=== PATIENT | female | born 1940 | race Hispanic/Latino ===

== ENCOUNTER 2019-08-21 16:52 | Emergency (ER) | payer MEDICARE ==
[~2019-08-21 16:52] MED LIST: BENZ-51 PO; LOSA50TA64 PO
[2019-08-21] MEDS ORDERED: ACETAMINOPHEN EXTRA STRENGTH 500 MG TABLET ONE (17:24)
[2019-08-21 17:48] LABS: BASOPHILS % (AUTO) 0.2 % (0.0-5.0); EOSINOPHILS % (AUTO) 0.6 % (0.0-8.0); HEMATOCRIT 40.7 % (36-48); MEAN CORPUSCULAR HGB CONC 32.4 g/dL (32.0-36.0); MEAN CORPUSCULAR VOLUME 89.5 fL (79-99); MONOCYTES % (AUTO) 1.5 % (3.0-13.0); NEUTROPHILS % (AUTO) 86.7 % (40.0-77.0); NUCLEATED RED BLOOD CELLS 0.1 % (0.0-0.19); PLATELET COUNT (AUTO) 224 K/uL (130-400); RED BLOOD CELL COUNT(AUTO) 4.54 MIL/uL (4.00-5.50); WHITE BLOOD COUNT (AUTO) 11.9 K/uL (4.8-10.8)
[2019-08-21 17:58] LABS: CREATININE 1.1 mg/dL (0.5-1.5); POTASSIUM 5.3 mmol/L (3.5-5.1)
[2019-08-21 18:02] LABS: ALBUMIN 3.5 g/dL (3.5-5.0); BILIRUBIN,TOTAL 0.5 mg/dL (0.2-1.0); TOTAL PROTEIN, SERUM 7.7 g/dL (6.0-8.3)
== END 2019-08-21 18:47 | disposition home or self-care (01) ==
LOC: EDH 16:52
DX: R19.7 Diarrhea, unspecified (principal); R53.1 Weakness; I10 Essential (primary) hypertension; M54.9 Dorsalgia, unspecified; M25.551 Pain in right hip
CPT/HCPCS: 36415; 70450; 80053; 83690; 84484; 85025; 93005

== ENCOUNTER 2021-12-23 05:21 | Emergency (ER) | payer MEDICARE ==
[~2021-12-23 05:21] MED LIST changes: -BENZ-51 PO; +BENZ-70 PO
[2021-12-23] MEDS ORDERED: LIDOCAINE PF 100MG/5ML (2%) SYRINGE 5ML ONE (06:06)
[2021-12-23] MEDS ORDERED: LIDOCAINE HCL MPF 1% 5ML VIAL ONE ×2 (06:09→06:16)
[2021-12-23 06:39] VITALS: BP 138/78
[2021-12-23] MEDS ORDERED: CLINDAMYCIN 150 MG CAP ONE (06:43)
[2021-12-23] MEDS ORDERED: CLIN-116 PO (06:47)
[2021-12-23] MEDS ORDERED: CLINDAMYCIN 150 MG CAP PO ONE (07:00)
== END 2021-12-23 07:03 | disposition home or self-care (01) ==
LOC: EDH 05:21
DX: L02.414 Cutaneous abscess of left upper limb (principal); E78.00 Pure hypercholesterolemia, unspecified; I10 Essential (primary) hypertension; Z79.899 Other long term (current) drug therapy
CPT/HCPCS: 10061; 99284; J3490 ×2; J2001

== ENCOUNTER 2022-03-16 05:37 | Emergency (ER) | payer MEDICARE ==
[~2022-03-16] VITALS: Ht 170.2 cm; Wt 78.9 kg
[~2022-03-16 05:37] MED LIST changes: +CLIN-116 PO
[2022-03-16] MEDS ORDERED: KETOROLAC 15MG/ML VIAL (15MG/ML) IV ONE (06:30)
[2022-03-16] MEDS ORDERED: GUAIFENESIN-DM 200/20 MG 10 ML PO ONE (06:30)
[2022-03-16] MEDS ORDERED: 0.9% NACL 500ML IV.SOLN 500 ML IV ONE (06:30)
[2022-03-16] MEDS ORDERED: D-ME118S47 PO (06:32)
[2022-03-16 07:13] LABS: BASOPHILS % (AUTO) 0.3 % (0.0-5.0); HEMATOCRIT 37.9 % (36-48); LYMPHOCYTES % (AUTO) 41.1 % (21.0-51.0); MEAN CORPUSCULAR HEMOGLOBIN 28.7 pg (27.0-33.0); MEAN CORPUSCULAR HGB CONC 31.9 g/dL (32.0-36.0); MEAN CORPUSCULAR VOLUME 89.8 fL (79-99); MONOCYTES % (AUTO) 12.2 % (3.0-13.0); PLATELET COUNT (AUTO) 218 K/uL (130-400); RED BLOOD CELL COUNT(AUTO) 4.22 MIL/uL (4.00-5.50); RED CELL DISTRIBUTION WIDTH 13.1 % (11.0-15.5); WHITE BLOOD COUNT (AUTO) 6.8 K/uL (4.8-10.8)
[2022-03-16 07:39] LABS: ALBUMIN 3.4 g/dL (3.5-5.0); BILIRUBIN,DIRECT 0.1 mg/dL (0.0-0.3); BILIRUBIN,TOTAL 0.3 mg/dL (0.2-1.0); POTASSIUM 3.5 mmol/L (3.5-5.1); TOTAL PROTEIN, SERUM 7.1 g/dL (6.0-8.3)
[2022-03-16] MEDS ORDERED: BENZONATATE 100 MG CAPSULE PO ONE (08:30)
[2022-03-16] MEDS ORDERED: ALBUTEROL INHALER 90MCG/INH IH ONE (08:30)
[2022-03-16] MEDS ORDERED: DEXAMETHASONE SOD PHOSPHATE 4 MG/ML 1ML VIAL IV ONE (08:30)
[2022-03-16 08:36] VITALS: BP 106/60
== END 2022-03-16 09:23 | disposition home or self-care (01) ==
LOC: EDH 05:37
DX: U07.1 COVID-19 (principal); R53.1 Weakness; Z88.6 Allergy status to analgesic agent; Z79.899 Other long term (current) drug therapy; Z90.49 Acquired absence of other specified parts of digestive tract; Z98.890 Other specified postprocedural states
CPT/HCPCS: 36415; 71045; 80053; 82248; 84484; 85025; 87635; 93005; 96374; 96375; 99285; C9803; J1100; J1885; J7040

== ENCOUNTER → 2022-06-16 | Outpatient (CLI) | payer MEDICARE ==
[~2022-06-16] MED LIST changes: +D-ME118S47 PO
[2022-06-16 10:57] LABS: ALBUMIN 3.8 g/dL (3.5-5.0); POTASSIUM 3.9 mmol/L (3.5-5.1); TOTAL PROTEIN, SERUM 7.8 g/dL (6.0-8.3)
== END | disposition home or self-care (01) ==
LOC: LAB 09:37
PROVIDERS: ATTEND Internal Medicine
DX: I10 Essential (primary) hypertension (principal); J44.9 Chronic obstructive pulmonary disease, unspecified; J84.10 Pulmonary fibrosis, unspecified; E78.2 Mixed hyperlipidemia
CPT/HCPCS: 36415; 80053

== ENCOUNTER 2023-01-15 06:02 | Emergency (ER) | payer MEDICARE ==
[~2023-01-15] VITALS: Ht 172.7 cm; Wt 82.1 kg
[~2023-01-15 06:02] MED LIST changes: +BENZ-226 PO; -BENZ-70 PO
[2023-01-15 06:16] VITALS: BP 183/88
[2023-01-15] MEDS ORDERED: MORPHINE 4 MG SYG IM ONE ×2 (07:30→08:30)
[2023-01-15] MEDS ORDERED: ONDANSETRON ODT 4MG TAB SL ONE (07:30)
[2023-01-15] MEDS ORDERED: OXYC-38 PO (08:14)
[2023-01-15] MEDS ORDERED: NAPR-1192 PO (08:14)
[2023-01-15] MEDS ORDERED: DOCU-116 PO (08:14)
== END 2023-01-15 08:39 | disposition home or self-care (01) ==
LOC: EDH 06:02
DX: M54.50 Low back pain, unspecified (principal); M79.662 Pain in left lower leg; I10 Essential (primary) hypertension; E78.00 Pure hypercholesterolemia, unspecified; J44.9 Chronic obstructive pulmonary disease, unspecified; Z79.899 Other long term (current) drug therapy; Z88.5 Allergy status to narcotic agent; Z88.8 Allergy status to other drugs, medicaments and biological substances; Z90.49 Acquired absence of other specified parts of digestive tract; Z98.890 Other specified postprocedural states
CPT/HCPCS: 99284; 96372 ×2; J2270 ×2

== ENCOUNTER 2025-01-28 00:23 | Inpatient (IN) | payer MEDICARE ==
[~2025-01-28] VITALS: Ht 165.1 cm; Wt 82.6 kg
[2025-01-28] VITALS (7 sets, daily range): BP systolic 146; BP diastolic 62; PULSE 74–95; RESP 17–20; TEMP 98.3–98.4; O2SAT 96–100
[~2025-01-28 00:23] MED LIST changes: +BROM118S48 PO; -D-ME118S47 PO; +DOCU-116 PO; +NAPR-1192 PO; +OXYC-38 PO
[2025-01-28 01:02] LABS: BASOPHILS # (AUTO) 0.06 K/uL (0.00-0.20); BASOPHILS % (AUTO) 0.4 % (0.0-5.0); EOSINOPHILS # (AUTO) 0.29 K/uL (0.00-0.70); EOSINOPHILS % (AUTO) 1.8 % (0.0-8.0); IMMATURE GRANULOCYTE ABSOLUTE 0.11 K/uL (0-1); LYMPHOCYTES # (AUTO) 3.7 K/uL (1.0-4.8); LYMPHOCYTES % (AUTO) 23.7 % (21.0-51.0); MEAN CORPUSCULAR HEMOGLOBIN 29.4 pg (27.0-33.0); MEAN CORPUSCULAR VOLUME 91.7 fL (79-99); MONOCYTES # (AUTO) 1.4 K/uL (0.1-1.0); MONOCYTES % (AUTO) 8.6 % (3.0-13.0); NEUTROPHILS # (AUTO) 10.2 K/uL (1.8-7.7); NEUTROPHILS % (AUTO) 64.8 % (40.0-77.0); PLATELET COUNT (AUTO) 214 K/uL (130-400); RED BLOOD CELL COUNT(AUTO) 4.36 MIL/uL (4.00-5.50); RED CELL DISTRIBUTION WIDTH 13.3 % (11.0-15.5); WHITE BLOOD COUNT (AUTO) 15.7 K/uL (4.8-10.8)
[2025-01-28] MEDS: acetaMINOPHEN 325 MG TAB PO ONE (01:10)
[2025-01-28 01:11] LABS: CREATININE 1.2 mg/dL (0.5-1.0)
[2025-01-28 01:25] LABS: B-TYPE NATRIURETIC PEPTIDE 27 pg/mL (0-100)
[2025-01-28 01:29] LABS: SARS-CoV-2, RNA, NAAT NEGATIVE SARS CoV-2 (NEGATIVE)
[2025-01-28 01:30] LABS: RAPID GROUP A STREP negative (NEGATIVE)
[2025-01-28 01:31] LABS: APPEARANCE,URINE CLEAR (CLEAR); BILIRUBIN,URINE NEGATIVE (NEGATIVE); COLOR,URINE LIGHT-YELLOW (YELLOW); GLUCOSE, URINE (UA) NEGATIVE (NEGATIVE); KETONES,URINE NEGATIVE (NEGATIVE); LEUKOCYTE ESTERASE ,URINE 250 Leu/uL (NEGATIVE); NITRATE,URINE NEGATIVE (NEGATIVE); OCCULT BLOOD,URINE NEGATIVE (NEGATIVE); PH,URINE 5.5 (5.0-8.0); PROTEIN,URINE NEGATIVE (NEGATIVE); UROBILINOGEN,URINE 0.2 mg/dL (0.2-1.0)
[2025-01-28 01:32] LABS: ADD UA MICROSCOPIC YES
[2025-01-28 01:36] LABS: BACTERIA,URINE RARE /HPF (None Seen); MUCUS,URINE RARE LPF (None Seen); SQUAMOUS EPITHELIAL CELL,UR RARE /HPF (0-2)
[2025-01-28 01:37] LABS: INFLUENZA TYPE A Negative For Type A (NEGATIVE); INFLUENZA TYPE B Negative For Type B (NEGATIVE)
[2025-01-28] MEDS: ZOSYN 3.375GM +NS 50ML IV ONE (01:58)
--- NOTE | 2025-01-28 02:49 | ERN ---
General Chief Complaint: Shortness of Breath Stated Complaint: PNA WITH FAILED OUTPATIENT ANTIBIOTIC THERAPY Time Seen by MD: 00:40 Time Seen by Midlevel: 00:40 Source: patient History of Present Illness Initial Comments The patient is an 84-year-old female with a past medical history of breast/stomach cancer who presents to the emergency department for evaluation of a persistent cough and shortness of breath. Patient was diagnosed with pneumonia proximally one week ago and has already taking azithromycin and Augmentin with little to no relief. She reports persistent cough. Allergies: Coded Allergies: tramadol (Unverified Allergy, Unknown, 03/16/22) Home Meds Active Scripts Oxycodone HCl/Acetaminophen (Percocet 5-325 mg Tablet) 1 Each Tablet, 1 EACH PO Q6H for pain, #10 TAB 0 Refills Prov:JANELLE WOOD MD 01/15/23 Docusate Sodium (Colace) 100 Mg Capsule, 100 MG PO TID for constipation, #30 CAP 0 Refills Prov:JANELLE WOOD MD 01/15/23 Naproxen (Naproxen) 375 Mg Tablet, 375 MG PO BID for 10 Days, #20 TAB 0 Refills Prov:JANELLE WOOD MD 01/15/23 D-Methorphan Hb/P-Epd HCl/Bpm (Bromfed Dm Cough Syrup) 118 Ml Syrup, 10 ML PO QID for cough, #120 ML Prov:CATRACHITO MATTA MD 03/16/22 Clindamycin HCl (Clindamycin HCl) 150 Mg Capsule, 150 MG PO TID, #30 CAP 0 Refills Prov:LUIS MIGUEL RICHEY MD 12/23/21 Reported Medications Benzonatate (Benzonatate) 100 Mg Capsule, 100 MG PO TIDP PRN for COUGH/COLD SYMPTOMS, CAP 11/29/18 Losartan Potassium (Losartan Potassium) 50 Mg Tablet, 50 MG PO DAILY, TAB 11/29/18 Past Medical History Past Medical History: Hypertension Medical History Other: SPINAL STENOSIS Past Surgical History: Appendectomy Surgical History Other: R BREAST SX Social History Social History: Negative, Lives with family Female( History) History: Not Applicable ROS Dictation CONSTITUTIONAL: Negative except for HPI HEAD/FACE: Negative except for HPI EENT: Negative except for HPI RESPIRATORY: Negative except for HPI GASTROINTESTINAL/ABDOMINAL: Negative except for HPI GENITOURINARY: Negative except for HPI MUSCULOSKELETAL: Negative except for HPI INTEGUMENTARY: Negative except for HPI NEUROLOGICAL/PSYCH: Negative except for HPI HEMATOLOGIC/LYMPHATIC: Negative except for HPI All Systems Negative, Except as noted above. 13 point review of systems assessed and all negative except for above. Physical Exam Physical Exam Dictation Vital Signs reviewed General Appearance: Alert, oriented x 3, no acute distress, well developed, nourished. Head and Face: non-traumatic. Eyes: PERRL, pink conjunctivas, eyelid no trauma, anterior chamber with arcus senilis. Ears: Pinnas intact and no signs of trauma or erythema ear canals clear and no discharge TM no erythema Nose: No discharge, no bleeding. Oropharynx: Mouth normal, tongue pink, pharynx clear,no erythema, tonsils no exudates, no abscesses noted, mucous membrane moist Neck: Supple, non-tender, no thyromegaly, no masses, no JVD, no bruits Breast:Deferred Chest:No tenderness, no crepitus, no paradoxical movement, no retractions Lungs: Decreased breath sounds of the right lower lung field, rhonchi to right lower lung field Heart: Regular rate, regular rhythm, no murmur, no gallops Vascular: no peripheral edema, Abdomen: Soft, positive bowel sounds, nondistended, no guarding, nontender, no rebound, no masses no hepatomegaly, no splenomegaly, no Zamudio's sign, no hernias. Rectal: Deferred Genital: Deferred Neurological: Normal speech, motor function intact, sensory function intact Musculoskeletal: Neck nontender, full range of motion, back nontender, full range of motion, Extremities: nontender, full range of motion Skin: Color pink, dry, no turgor, no rash, no lacerations, no abrasions, no contusions. Lymphatic: Deferred Results Laboratory and Microbiology Lab and Micro Result Laboratory Tests Test 01/28/25 00:44 01/28/25 01:08 01/28/25 01:11 White Blood Count 15.7 K/uL (4.8-10.8) H Red Blood Count 4.36 MIL/uL (4.00-5.50) Hemoglobin 12.8 g/dL (12.0-16.0) Hematocrit 40.0 % (36-48) Mean Corpuscular Volume 91.7 fL (79-99) Mean Corpuscular Hemoglobin 29.4 pg (27.0-33.0) Mean Corpuscular Hemoglobin Concent 32.0 g/dL (32.0-36.0) Red Cell Distribution Width 13.3 % (11.0-15.5) Platelet Count 214 K/uL (130-400) Mean Platelet Volume 11.2 fL (7.5-10.5) H Immature Granulocyte % (Auto) 0.7 % (0-1) Neutrophils (%) (Auto) 64.8 % (40.0-77.0) Lymphocytes (%) (Auto) 23.7 % (21.0-51.0) Monocytes (%) (Auto) 8.6 % (3.0-13.0) Eosinophils (%) (Auto) 1.8 % (0.0-8.0) Basophils (%) (Auto) 0.4 % (0.0-5.0) Neutrophils # (Auto) 10.2 K/uL (1.8-7.7) H Lymphocytes # (Auto) 3.7 K/uL (1.0-4.8) Monocytes # (Auto) 1.4 K/uL (0.1-1.0) H Eosinophils # (Auto) 0.29 K/uL (0.00-0.70) Basophils # (Auto) 0.06 K/uL (0.00-0.20) Absolute Immature Granulocyte (auto 0.11 K/uL (0-1) Nucleated Red Blood Cells 0.0 % (0.0-0.19) Sodium Level 141 mmol/L (136-145) Potassium Level 4.0 mmol/L (3.5-5.1) Chloride Level 103 mmol/L (101-111) Carbon Dioxide Level 29 mmol/L (21-32) Blood Urea Nitrogen 15 mg/dL (7-18) Creatinine 1.2 mg/dL (0.5-1.0) H Glomerular Filtration Rate Calc 45 mL/min (>90) Random Glucose 109 mg/dL (70-105) H Lactic Acid Level 1.7 mmol/L (0.8-2.5) Total Calcium 8.9 mg/dL (8.5-10.1) Magnesium Level 2.00 mg/dL (1.80-2.40) Total Creatine Kinase 44 U/L (21-232) Troponin I High Sensitivity 8 ng/L (4-50) B-Type Natriuretic Peptide 27 pg/mL (0-100) Influenza Type A Antigen Negative For Type A Influenza Type B Antigen Negative For Type B SARS-CoV-2, RNA, NAAT NEGATIVE SARS CoV-2 Group A Streptococcus Rapid negative (NEGATIVE) Urine Color LIGHT-YELLOW (YELLOW) Urine Appearance CLEAR (CLEAR) Urine pH 5.5 (5.0-8.0) Urine Specific [place] 1.015 (1.001-1.031) Urine Protein NEGATIVE mg/dL (NEGATIVE) Urine Glucose (UA) NEGATIVE mg/dL (NEGATIVE) Urine Ketones NEGATIVE mg/dL (NEGATIVE) Urine Occult Blood NEGATIVE (NEGATIVE) Urine Nitrate NEGATIVE (NEGATIVE) Urine Bilirubin NEGATIVE mg/dL (NEGATIVE) Urine Urobilinogen 0.2 mg/dL (0.2-1.0) Urine Leukocyte Esterase 250 Alanna/uL (NEGATIVE) H Urine RBC 2-5 /HPF (0-1) H Urine WBC 11-25 /HPF (0-1) H Urine Squamous Epithelial Cells RARE /HPF (0-2) Urine Bacteria RARE /HPF (None Seen) Labs Reviewed?: Yes MDM MDM: Differential diagnosis: Pneumonia, failure of outpatient therapy, dehydration, electrolyte abnormality Rationale: Tests considered and ordered secondary to shared decision making include: Previous outside records reviewed: Old ER visits. Risk of complication and/or morbidity or mortality of patient management: None Medications-Per medication reconciliation Need for hospitalization: Patient does meet criteria for hospitalization. Need for emergency major/minor surgery: No There are no social concerns with this patient. Prescription drug management Prescriptions will include symptomatic care Patient's prior external medical records from other ER visits were reviewed by me as indicated. Prior testing and results from previous visits were reviewed. Prior tests were taken into account with medical decision making and resource utilization, independent historian/historians were used to obtain complete medical history. I independently interpreted the test that were performed, results were reviewed by me and considered findings on radiology if ordered. Medical management and examination interpretation discussions were had by me with other qualified healthcare professionals as indicated for the patient's care. ED Course Orders Procedure Category Date Status Time 12 Lead Ekg Tracing- EKG 01/28/25 Logged Technical 00:40 Cbc With Differential LAB 01/28/25 Complete 00:40 Basic Metabolic Panel LAB 01/28/25 Complete 00:40 B-Type Natriuretic LAB 01/28/25 Complete Peptide 00:40 Creatine Kinase, Total LAB 01/28/25 Complete 00:40 Lactic Acid LAB 01/28/25 Complete 00:40 Blood Cult TRINITY 01/28/25 In Process 00:40 Magnesium LAB 01/28/25 Complete 00:40 Urinalysis Profile LAB 01/28/25 Complete 00:40 Troponin I High LAB 01/28/25 Complete Sensitivity 00:40 Chest 1vw RAD 01/28/25 Taken 00:40 Acetaminophen 325 Tab PHA 01/28/25 Complete (Tylenol 325mg Tab 01:00 Covid Rna Naat LAB 01/28/25 Complete 00:48 Influenza Type A & B, LAB 01/28/25 Complete Rapid 00:48 Rapid (Group A Strep) LAB 01/28/25 Complete 00:48 Zosyn 3.375gm+Ns 50ml PHA 01/28/25 Complete (Zosyn 3.375gm+Ns 01:30 Culture Urine TRINITY 01/28/25 Logged 01:32 Current Medications Medications (Trade) Dose Ordered Sig/Daniel Route PRN Reason Start Time Stop Time Status Last Admin Dose Admin Acetaminophen (TYLenol 325MG TAB) 650 mg ONCE ONCE PO 01/28/25 01:00 01/28/25 01:01 DC 01/28/25 01:10 Piperacillin Sod/ Tazobactam Sod (Zosyn 3.375gm+NS 50ml) 3.375 gm ONCE ONCE IV 01/28/25 01:30 01/28/25 01:31 DC 01/28/25 01:58 Vital Signs Date Time Temp Pulse Resp B/P (MAP) Pulse Ox O2 Delivery O2 Flow Rate FiO2 01/28/25 01:10 99.5 01/28/25 00:45 99.5 97 20 162/70 97 Room Air* 0 21 01/28/25 00:24 98.4 108 18 120/87 93 Room Air 01/28/25 00:24 99.9 112 24 120/87 93 Room Air* 0 21 DX & DISP Disposition: Inpatient Departure Impression: Primary Impression: Community acquired pneumonia of right lower lobe of lung Additional Impression: Failure of outpatient treatment Condition: Stable Referrals: GLADYS HAMLIN Jr., MD (PCP) Time of Disposition: 02:47 I have reviewed the case, and I agree with, Diagnosis and Plan I performed the substantive portion of the visit. I have reviewed and personally made and approve the management plan that is documented in the note by myself or the DALILA. I acknowledge for responsibility for the patient's management plan. SATANM BRONSON January 28, 2025 02:49
--- NOTE | 2025-01-28 03:16 | HP ---
[facility] H[facility]ORY AND PHYSICAL Date of Service: January 28, 2025 Time of Service: 03:15 GLADYS HAMLIN Jr., MD (PCP) Admitting/supervising physicians: Dr. Camejo and Dr. Eliu Wood HISTORY OF PRESENT ILLNESS: Ms. Luis is a 84-year-old female with a past medical history of hypertension, obesity, and breast/stomach cancer who presented to the emergency department for evaluation of a persistent cough and shortness of breath. Patient was diagnosed with pneumonia approximately one week ago and has already taking azithromycin and Augmentin with little to no relief. Per external medication review, the patient has also been on Deltasone/Orosone, doxycycline, benzonatate, and montelukast for this persistent cough. WBCs 15.7. CT chest without contrast: WNL. ED administered Zosyn 3.375 and Tylenol 650 mg. ED provider request patient be admitted with the diagnosis of cap of right lower lobe of lung with failure of outpatient treatment. I assess the patient at bedside in room number ED 15. Breathing was even, unlabored, in no distress. The patient had intermittent coughing with deep breaths. I informed the patient of labs, diagnostics, and plan of care. The patient verbalized understanding and is in agreement with the plan. Plan and assessment are listed below. REVIEW OF SYSTEMS 12-point ROS reviewed with the patient. All pertinent positives mentioned above. Otherwise negative, noncontributory, nonpertinent. PAST MEDICAL HISTORY: MENTIONED ABOVE PAST SURGICAL HISTORY: Spinal stenosis, appendectomy, right breast surgery PAST SOCIAL HISTORY: Denied alcohol, tobacco, and illicit drug use. Coded Allergies: tramadol (Unverified Allergy, Unknown, 03/16/22) PHYSICAL EXAM GENERAL APPEARANCE: The patient is awake, alert, and oriented, in no acute cardiopulmonary distress. NEUROLOGICAL: Cranial nerves II-XII grossly intact. Motor is 5/5 in bilateral upper and lower extremities proximal to distal. No sensory deficits. HEENT: Face is symmetric. Pupils are equal and reactive. Extraocular movements are intact. NECK: Supple. No JVD. No thyromegaly. No submental, submandibular, pre- /postauricular, occipital or supraclavicular lymphadenopathy. CHEST: Normal chest expansion. No Telemetry. Dry cough. LUNGS: Absence of any rales, rhonchi or any wheezing. CARDIOVASCULAR: Regular. S1 and S2 normal. No appreciable rubs, murmurs or gallops. ABDOMEN: Soft, nontender, and nondistended. There is no rebound, voluntary guarding, or rigidity. : Deferred. No [place]. EXTREMITIES: Non-edematous and not cyanotic. No clubbing. Good capillary refill. SKIN: No skin breakdown. Vital Sign (Last 24 Hours) 01/28/25 01/28/25 00:45 01:10 Temp 99.5 Pulse 97 Resp 20 B/P (MAP) 162/70 Pulse Ox 97 O2 Delivery Room Air* O2 Flow Rate 0 FiO2 21 LABS: Laboratory: Test 01/28/25 01:11 01/28/25 01:08 01/28/25 00:44 Range/Units Urine Color LIGHT-YELLOW YELLOW Urine Appearance CLEAR CLEAR Urine pH 5.5 5.0-8.0 Urine Specific [place] 1.015 1.001-1.031 Urine Protein NEGATIVE NEGATIVE mg/dL Urine Glucose (UA) NEGATIVE NEGATIVE mg/dL Urine Ketones NEGATIVE NEGATIVE mg/dL Urine Occult Blood NEGATIVE NEGATIVE Urine Nitrate NEGATIVE NEGATIVE Urine Bilirubin NEGATIVE NEGATIVE mg/dL Urine Urobilinogen 0.2 0.2-1.0 mg/dL Urine Leukocyte Esterase 250 H NEGATIVE Alanna/uL Urine RBC 2-5 H 0-1 /HPF Urine WBC 11-25 H 0-1 /HPF Urine Squamous Epithelial Cells RARE 0-2 /HPF Urine Bacteria RARE None Seen /HPF Influenza Type A Antigen Negative For Type A NEGATIVE Influenza Type B Antigen Negative For Type B NEGATIVE SARS-CoV-2, RNA, NAAT NEGATIVE SARS CoV-2 NEGATIVE Group A Streptococcus Rapid negative NEGATIVE White Blood Count 15.7 H 4.8-10.8 K/uL Red Blood Count 4.36 4.00-5.50 MIL/uL Hemoglobin 12.8 12.0-16.0 g/dL Hematocrit 40.0 36-48 % Mean Corpuscular Volume 91.7 79-99 fL Mean Corpuscular Hemoglobin 29.4 27.0-33.0 pg Mean Corpuscular Hemoglobin Concent 32.0 32.0-36.0 g/dL Red Cell Distribution Width 13.3 11.0-15.5 % Platelet Count 214 130-400 K/uL Mean Platelet Volume 11.2 H 7.5-10.5 fL Immature Granulocyte % (Auto) 0.7 0-1 % Neutrophils (%) (Auto) 64.8 40.0-77.0 % Lymphocytes (%) (Auto) 23.7 21.0-51.0 % Monocytes (%) (Auto) 8.6 3.0-13.0 % Eosinophils (%) (Auto) 1.8 0.0-8.0 % Basophils (%) (Auto) 0.4 0.0-5.0 % Neutrophils # (Auto) 10.2 H 1.8-7.7 K/uL Lymphocytes # (Auto) 3.7 1.0-4.8 K/uL Monocytes # (Auto) 1.4 H 0.1-1.0 K/uL Eosinophils # (Auto) 0.29 0.00-0.70 K/uL Basophils # (Auto) 0.06 0.00-0.20 K/uL Absolute Immature Granulocyte (auto 0.11 0-1 K/uL Nucleated Red Blood Cells 0.0 0.0-0.19 % Sodium Level 141 136-145 mmol/L Potassium Level 4.0 3.5-5.1 mmol/L Chloride Level 103 101-111 mmol/L Carbon Dioxide Level 29 21-32 mmol/L Blood Urea Nitrogen 15 7-18 mg/dL Creatinine 1.2 H 0.5-1.0 mg/dL Glomerular Filtration Rate Calc 45 >90 mL/min Random Glucose 109 H 70-105 mg/dL Lactic Acid Level 1.7 0.8-2.5 mmol/L Total Calcium 8.9 8.5-10.1 mg/dL Magnesium Level 2.00 1.80-2.40 mg/dL Total Creatine Kinase 44 21-232 U/L Troponin I High Sensitivity 8 4-50 ng/L B-Type Natriuretic Peptide 27 0-100 pg/mL DIAGNOSTICS / RADIOLOGY: [ ] ASSESSMENT: Acute persistent cough, POA Acute complicated cystitis, POA Critically elevated D-dimer, rule out PE/DVT Leukocytosis, POA Acute on chronic kidney disease, GFR45 Hyperglycemia Pneumonitis/ bronchiolitis with failed outpatient antibiotic therapy Obesity, BMI 30.3 Chronic problem list: Hypertension, obesity, spinal stenosis PLAN: -Admit to Medical floor with continuous telemetry monitoring -Obtain sputum cultures, blood cultures, urine cultures. -Obtain venous Doppler and V/Q scan. -Consult Pulmonology. -Monitor respiratory status closely. -Continue oxygen therapy as needed. Titrate oxygen prn to keep Spo2>/+=92%. -Albuterol and Atrovent scheduled. -RT to provide IS and education on use. -Robitussin DM as needed cough. -Solu-Medrol IV daily. -Continue antibiotic therapy: Zosyn IV -Start doxycycline IV. -Deescalate antibiotics once appropriate. -Tylenol as needed fever/ pain. -Glucometer checks AC & HS needed with insulin regular sliding scale coverage as needed. -Blood pressure checks every 4 hours and as needed. -Reconcile home medications once available. -Start labetalol IV as needed systolic blood pressure greater than 160 -AM labs: monitor renal and liver function, monitor electrolytes and replace PRN -GI and DVT prophylaxis: Pepcid and Lovenox -Additional plan and assessment are listed below. ADVANCED CARE PLANNING 1. Which of the following were discussed? Hospice Care - No Therapeutic options - Yes Advance Directives - Yes Other discussions - 2. Discussed with who? Patient 3. Voluntary nature of this service was explained to the patient? Yes 4. Amount of time spent - __ over 35 minutes 5. Reviewed by Physician? (if this service was performed by DALILA) Yes ATTESTATION BY PHYSICIAN I have seen and examined the patient. I reviewed the documentation, medical decision making, and treatment plan as noted by the mid-level provider above. I agree with the findings and plan of care. MO MATTSON January 28, 2025 03:16
[2025-01-28] MEDS ORDERED: LAbetaLOL 20MG SYG IV PRN (03:30)
[2025-01-28] MEDS ORDERED: TEMAZepam 15 MG CAPSULE PO PRN (03:30)
[2025-01-28] MEDS ORDERED: LACTULOSE 20 GM/30 ML UDCUP PO PRN (03:30)
[2025-01-28] MEDS ORDERED: ondanSETRON 4MG INJ IVP PRN (03:30)
[2025-01-28] MEDS ORDERED: acetaMINOPHEN 650 MG SUPPOSITORY RC PRN (03:30)
[2025-01-28 03:42] LABS: ABG BASE EXCESS -0.1 mmol/L (-2.0-3.0); ABG HCO3 23.1 mmol/L (21.0-28.0); ABG OXYGEN SATURATION 97.5 % (94.0-98.0); ABG PCO2 33 mmHg (32-45); ABG PH 7.461 (7.350-7.450); CARBON MONOXIDE 0.3 % (0.5-1.5); HHb 2.5; PO2, ARTERIAL BG 100.3 mmHg (83.0-108.0); VENT MODE, BG 2LNC (ROOM AIR)
[2025-01-28] MEDS ORDERED: ROSU10TA72 PO (03:49)
[2025-01-28] MEDS: DOXYCYCLINE 100MG+NS 250ML 250 ML IV SCH (04:24)
[2025-01-28] MEDS: IpraTROPium 0.5 MG/2.5 ML INH IH SCH (06:57)
[2025-01-28] MEDS: ALBUTEROL 0.083% 2.5 MG/3 ML INH IH SCH (06:57)
[2025-01-28] MEDS: BUDESONIDE 0.5 MG/2 ML INH IH SCH (06:57)
--- NOTE | 2025-01-28 07:05 | NUR ---
ASSUMED PATIENTS CARE.
[2025-01-28] MEDS: SODIUM CHLORIDE 3% FOR INHALATION 4 ML/AMP VIAL.NEB IH ONE ×2 (07:21→11:49)
[2025-01-28] MEDS: INSULIN humuLIN R 100 UNIT/ML 3ML SQ SCH (07:30)
--- NOTE | 2025-01-28 07:30 | NUR ---
HOME MEDICATION NOT REVIEWED. PATIENT DOES NOT REMEMBER WHAT MEDICATIONS SHE TAKES AT HOME. ENCOURAGED PATIENT TO NOTIFY FAMILY MEMBERS TO BRING LIST OF HOME MEDICATIONS. SHE VERBALIZED UNDERSTANDING.
--- NOTE | 2025-01-28 07:50 | EKG ---
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
--- NOTE | 2025-01-28 08:00 | NUR ---
BLOOD GLUCOSE 104. NO INSULIN COVERAGE NEEDED AT THIS TIME.
--- NOTE | 2025-01-28 08:22 | HMCIMG ---
CT NONCONTRAST CHEST Comparison Study: none History: recurrent cough, dyspnea Technique: Helical CT of the chest without IV contrast at 5 mm collimation. Coronal and sagittal reformations also done. CT Dose Index (CTDI): 2.38 mGy Dose Length Product (DLP): 94.8 total mGy-cm Findings: The airway is intact. The trachea and major bronchi are unremarkable. The chest exam shows no pulmonary nodules or masses. No significant pulmonary parenchymal abnormalities are noted. No pulmonary infiltrates or mass lesions are seen. No pleural effusions are identified. There is no pneumothorax. There is no evidence of pneumomediastinum. The nonenhanced exam of the anahi and mediastinum is unremarkable. No evidence of hilar enlargement is seen. The aorta shows no aneurysmal dilatation or significant atheromatous calcification. No significant brachiocephalic vascular abnormalities are seen. The heart is unremarkable. It is not enlarged. No significant coronary arterial calcifications are seen. There is no pericardial effusion. The rib cage appears unremarkable. There are postoperative changes of the right breast. The dorsal spine shows no significant abnormalities. IMPRESSION: NORMAL CT OF THE CHEST WITHOUT CONTRAST. This study was performed using dose reduction techniques to include automated exposure control and/or adjustment of the mA and/or kV according to patient size.
[2025-01-28] MEDS: FAMOTIDINE 20MG TAB PO SCH (08:38)
[2025-01-28] MEDS: FERROUS SULFATE 325 MG TABLET.DR PO SCH (08:38)
[2025-01-28] MEDS: doCUSate SODIUM 100 MG CAP PO PRN (08:38)
[2025-01-28] MEDS: ENOXAPARIN SODIUM 30 MG/0.3 ML SQ SCH (08:39)
--- NOTE | 2025-01-28 09:01 | HMCIMG ---
Exam Type: CHEST 1VW Clinical Information: sob Comparison: None Findings: The lungs are clear of infiltrates. The heart is normal in size. The bony and soft tissue structures of the chest are unremarkable. Impression: Clear lungs.
--- NOTE | 2025-01-28 09:50 | NUR ---
NOTIFY DR. WALLER ABOUT CRITICAL LAB: D-DIMER 1027. ( VIEW ORDERS)
[2025-01-28] MEDS ORDERED: 0.9%NACL 50ML IV SCH (10:00)
--- NOTE | 2025-01-28 10:08 | NUR ---
NOTIFY MR. MAXIMILIANO MADRID FOR BENCHMARK TO NOTIFY HIM OF NEW CONSULT. HE STATED HE WILL SEE PATIENT TODAY.
--- NOTE | 2025-01-28 10:13 | HMCIMG ---
Exam Type: US VENOUS DOPPLER BILATERAL Clinical Information: Elevated ddimer, cough Comparison: None Findings: The examination shows normal deep venous system. There is normal compressibility at all levels. There is no intraluminal clot. There is no occlusion. Adequate response is obtained on augmentation. Impression: No evidence of DVT.
[2025-01-28] MEDS: ZOSYN 3.375GM +NS 50ML IVPB SCH (10:50)
--- NOTE | 2025-01-28 11:25 | NUR ---
BLOOD GLUCOSE 103. NO INSULIN COVERAGE NEEDED AT THIS TIME.
--- NOTE | 2025-01-28 12:25 | NUR ---
CALLED MRS. RAMSAYYUMI NO FOR HOSPITALIST, NOTIFY HER THAT PATIENT WAS REQUESTING COUGH SYRUP. PENDING ORDERS.
--- NOTE | 2025-01-28 13:02 | CONS ---
[facility] CONSULTATION NOTE Date Patient Seen: January 28, 2025 Time of Visit: 13:02 Supervising Physician: [Dr. Pelaez] Reason for Consultation: [Pneumonia] Primary Care Physician: [[facility]] Outpatient Specialists: [ ] Inpatient Consults: [[facility]] PROBLEM LIST: Subacute bronchitis, failed outpatient management Acute complicated cystitis, POA Critically elevated D-dimer, rule out PE/DVT Leukocytosis, POA Acute on chronic kidney disease, GFR45 Hyperglycemia Obesity, BMI 30.3 Hypertension, Spinal stenosis HPI: [This is an 84-year-old female with a history of breaths/stomach cancer who presented to the ED for evaluation of subacute cough with failed outpatient management. Her labs on admission reveal leukocytosis of 15, elevated creatinine of 1.2 But were otherwise unremarkable. Procalcitonin was normal, COVID and flu negative, ABG within normal limits. Troponin was negative, BNP normal, lactic acid normal. Her urine showed leukocyte esterase. She was placed on Zosyn doxycycline. Patient had a critically elevated D-dimer, pending V/Q scan and venous Doppler. Her CT of the chest was grossly unremarkable. [facility] was consulted for treatment of pneumoniae.] PAST MEDICAL HX: see above PAST SURGICAL HX: noncontributory SOCIAL HISTORY: No tobacco, ETOH, or illicit drug use Coded Allergies: tramadol (Unverified Allergy, Unknown, 03/16/22) REVIEW OF SYSTEMS: 12 point ROS reviewed with patient. Pertinent positives mentioned above. Otherwise negative. PHYSICAL EXAM: GENERAL: alert, weak, awake oriented x 3 HEENT: EOMI, Sclera non icteric, moist mucosa NECK: Supple, no JVD, trachea midline LUNGS: Clear breath sounds bilaterally. No wheezes HEART: Regular rate and rhythm. Normal S1 and S2, without murmurs ABD: Abdomen soft, nontender. Bowel sounds present EXT: No clubbing cyanosis or edema NEURO: Alert and oriented to person, follows commands Vital Signs (last 8hr) Date Time Temp Pulse Resp B/P (MAP) Pulse Ox O2 Delivery O2 Flow Rate FiO2 01/28/25 12:00 97.9 74 16 135/65 95 Room Air* 0 21 01/28/25 11:35 75 20 01/28/25 11:35 75 20 N/A Room Air 21 01/28/25 07:42 97.9 72 12 115/59 100 Nasal Cannula* 2 28 01/28/25 07:06 78 20 N/A Room Air 21 01/28/25 07:04 78 20 01/28/25 05:57 98.6 67 20 121/50 99 Nasal Cannula* 2.0 N/A LABS: Hematology Labs: Test 01/28/25 00:44 Range/Units White Blood Count 15.7 H 4.8-10.8 K/uL Red Blood Count 4.36 4.00-5.50 MIL/uL Hemoglobin 12.8 12.0-16.0 g/dL Hematocrit 40.0 36-48 % Mean Corpuscular Volume 91.7 79-99 fL Mean Corpuscular Hemoglobin 29.4 27.0-33.0 pg Mean Corpuscular Hemoglobin Concent 32.0 32.0-36.0 g/dL Red Cell Distribution Width 13.3 11.0-15.5 % Platelet Count 214 130-400 K/uL Mean Platelet Volume 11.2 H 7.5-10.5 fL Immature Granulocyte % (Auto) 0.7 0-1 % Neutrophils (%) (Auto) 64.8 40.0-77.0 % Lymphocytes (%) (Auto) 23.7 21.0-51.0 % Monocytes (%) (Auto) 8.6 3.0-13.0 % Eosinophils (%) (Auto) 1.8 0.0-8.0 % Basophils (%) (Auto) 0.4 0.0-5.0 % Neutrophils # (Auto) 10.2 H 1.8-7.7 K/uL Lymphocytes # (Auto) 3.7 1.0-4.8 K/uL Monocytes # (Auto) 1.4 H 0.1-1.0 K/uL Eosinophils # (Auto) 0.29 0.00-0.70 K/uL Basophils # (Auto) 0.06 0.00-0.20 K/uL Absolute Immature Granulocyte (auto 0.11 0-1 K/uL Nucleated Red Blood Cells 0.0 0.0-0.19 % Chemistry Labs: Test 01/28/25 11:24 01/28/25 00:44 Range/Units Whole Blood Glucose 103 70-110 MG/DL Sodium Level 141 136-145 mmol/L Potassium Level 4.0 3.5-5.1 mmol/L Chloride Level 103 101-111 mmol/L Carbon Dioxide Level 29 21-32 mmol/L Blood Urea Nitrogen 15 7-18 mg/dL Creatinine 1.2 H 0.5-1.0 mg/dL Glomerular Filtration Rate Calc 45 >90 mL/min Random Glucose 109 H 70-105 mg/dL Lactic Acid Level 1.7 0.8-2.5 mmol/L Total Calcium 8.9 8.5-10.1 mg/dL Magnesium Level 2.00 1.80-2.40 mg/dL Total Creatine Kinase 44 21-232 U/L Troponin I High Sensitivity 8 4-50 ng/L B-Type Natriuretic Peptide 27 0-100 pg/mL Procalcitonin < 0.05 L 0.05-0.5 ng/mL Coagulation Labs: Test 01/28/25 06:06 Range/Units D-Dimer Quantitative (PE/DVT) 1029 *H 0-500 ng/mL DIAGNOSTICS / RADIOLOGY RESULTS: [ ] PLAN Follow venous Doppler and V/Q scan results Continue nebulizer solution Continue IV antibiotics Supplemental oxygen as needed, wean off as tolerated Cough medication as needed Further management per primary Disposition per primary NEURO: Minimize central acting medications as possible. Maintain fall precautions, adequate lighting during the day PULMONARY: Supplemental 02 as needed. Maintain aspiration precautions at all times CARDIOVASCULAR: Follow hemodynamics. Vital signs per facility protocol GI & NUTRITION: Continue with nutritional support. Continue stool softeners and laxatives as needed. KIDNEYS & ELECTROLYTES: Strict monitoring of intake, output and overall fluid balance. Avoid nephrotoxic medications to the extent possible. Medications to be dosed according to renal function. Monitor electrolytes and replace as needed ENDOCRINE: Maintain blood glucose between 100-180 at all times. Hypoglycemia protocol in place INFECTIOUS DISEASE: Trend temperature, WBC and procalcitonin level Follow cultures, deescalate antibiotics as soon as possible. Panculture if new onset fever ONCOLOGY/HEMATOLOGY/COAGULATION: Monitor for s/s of bleeding Monitor hemoglobin, coagulation studies as needed SKIN: Pressure ulcer prevention per facility protocol Specialty mattress ORTHO/REHAB: Continue PT/OT Prophylaxis: Continue GI and DVT prophylaxis Code Status: Full Resuscitation Disposition: TBD Other: Total patient care time exceeds 35 minutes excluding all procedures. MAXIMILIANO GONZALEZ January 28, 2025 13:02
--- NOTE | 2025-01-28 13:11 | NUR ---
ASSUMED CARE AT THIS TIME.
--- NOTE | 2025-01-28 13:49 | NUR ---
DCP: HOME vs HOME with Sister Mari Cooper Pt lives alone in her home, denies issues affording home, utilities or food. Pt drives self, requires no assistance with her ADLS, ambulation, or home management. Pt has no in home care services. PCP is Samuel Sousa and uses [facility] for rx needs. Denies need for SNF and will return home or may go stay with sister Mari Cooper [phone] [place] Addendum: 01/28/25 at 1352 by CHLOE RUIZ Amended: Links added.
[2025-01-28] MEDS: guaiFENesin-DM 200/20MG 10ML PO SCH (14:05)
--- NOTE | 2025-01-28 16:14 | HMCIMG ---
Exam Type: NM PULMONARY/LUNG VQ SCAN Clinical Information: ELEVATED D-DIMER Comparison: None Findings: Anterior and posterior pulmonary ventilation scan was performed during and following inhalation of 6.4 mCi of xenon-133 gas and pulmonary perfusion images were performed following intravenous injection of 5 mCi of 99m Tc-labeled MAA. Ventilation: homogeneous distribution of the xenon gas in both lungs during the single breath and equilibrium phases. Symmetrical clearance of the xenon gas demonstrated in the wash out phase. No evidence of air trapping. Perfusion: homogeneous distribution of the radiolabeled particles in both lungs with normal hilar and cardiac attenuation defect. No wedge shaped or focal perfusion defects are seen. Impression: No evidence of pulmonary embolism.
[2025-01-28] MEDS: acetaMINOPHEN 325 MG TAB PO PRN (19:55)
--- NOTE | 2025-01-28 21:06 | NUR ---
PATIENT TRANSFERED TO HOSPITAL BED
[2025-01-28] MEDS: MIDAZOLAM HCL 5 MG/ML 2ML VIAL IV ONE (22:32)
--- NOTE | 2025-01-28 23:24 | NUR ---
REPORT GIVEN TO LUZ MARIA
[2025-01-29] VITALS (13 sets, daily range): BP systolic 111–148; BP diastolic 56–85; PULSE 7–91; RESP 17–20; TEMP 98.2–98.4; O2SAT 97–99
[2025-01-29 04:09] LABS: HEMATOCRIT 34.5 % (36-48); MEAN CORPUSCULAR HEMOGLOBIN 29.3 pg (27.0-33.0); MEAN CORPUSCULAR HGB CONC 31.9 g/dL (32.0-36.0); RED BLOOD CELL COUNT(AUTO) 3.75 MIL/uL (4.00-5.50); RED CELL DISTRIBUTION WIDTH 13.4 % (11.0-15.5); WHITE BLOOD COUNT (AUTO) 11.3 K/uL (4.8-10.8)
[2025-01-29 04:42] LABS: CREATININE 1.1 mg/dL (0.5-1.0); PHOSPHORUS 4.2 mg/dL (2.5-4.9); POTASSIUM 3.8 mmol/L (3.5-5.1)
--- NOTE | 2025-01-29 08:52 | PN ---
[facility] PROGRESS NOTE Date of Service: January 29, 2025 Time of Service: 08:41 SUBJECTIVE: Ms. Luis is a 84-year-old female with a past medical history of hypertension, obesity, and breast/stomach cancer who presented to the emergency department for evaluation of a persistent cough and shortness of breath. Patient was diagnosed with pneumonia approximately one week ago and has already taking azithromycin and Augmentin with little to no relief. Per external medic ation review, the patient has also been on Prednisone , doxycycline, benzonatate, and montelukast for this persistent cough. At the time of presentation, Vitals : Temperature 99.9, Heart rate 112, RR 18/min, BP 120/87 mm of Hg .Labs remarkable for WBCs 15.7. CT chest without contrast showed a small rt lung bulla .She is admitted for further evaluation and treatment . 01.29.25: Patient is seen in the room, with no acute respiratory distress. She is saturating adequately in room air. Ddimer is elevated at 1029. Well score <4, V/Q scan negative . CXR and CT scan unremarkable . Pulmonology recommendations appreciated. Respiratory culture pending . REVIEW OF SYSTEMS 12-point ROS reviewed with the patient. All pertinent positives mentioned above. Otherwise negative, noncontributory, nonpertinent. PHYSICAL EXAM GENERAL APPEARANCE: The patient is awake, alert, and oriented, in no acute cardiopulmonary distress. NEUROLOGICAL: Cranial nerves II-XII grossly intact. Motor is 5/5 in bilateral upper and lower extremities proximal to distal. No sensory deficits. HEENT: Face is symmetric. Pupils are equal and reactive. Extraocular movements are intact. NECK: Supple. No JVD. No thyromegaly. No submental, submandibular, pre- /postauricular, occipital or supraclavicular lymphadenopathy. CHEST: Normal chest expansion. No Telemetry. Dry cough. LUNGS: Absence of any rales, rhonchi or any wheezing. CARDIOVASCULAR: Regular. S1 and S2 normal. No appreciable rubs, murmurs or gallops. ABDOMEN: Soft, nontender, and nondistended. There is no rebound, voluntary guarding, or rigidity. : Deferred. No [place]. EXTREMITIES: Non-edematous and not cyanotic. No clubbing. Good capillary refill. SKIN: No skin breakdown. Vital Signs (last 8hr) Date Time Temp Pulse Resp B/P (MAP) Pulse Ox O2 Delivery O2 Flow Rate FiO2 01/29/25 08:00 98.2 81 20 135/73 98 Room Air 21 01/29/25 07:29 77 20 01/29/25 07:29 7 19 N/A Room Air 01/29/25 03:57 98.2 79 17 111/56 97 Room Air LABS: Laboratory: Test 01/29/25 05:29 01/29/25 03:57 01/28/25 06:06 01/28/25 03:40 Range/Units Whole Blood Glucose 125 H 70-110 MG/DL White Blood Count 11.3 H 4.8-10.8 K/uL Red Blood Count 3.75 L 4.00-5.50 MIL/uL Hemoglobin 11.0 L 12.0-16.0 g/dL Hematocrit 34.5 L 36-48 % Mean Corpuscular Volume 92.0 79-99 fL Mean Corpuscular Hemoglobin 29.3 27.0-33.0 pg Mean Corpuscular Hemoglobin Concent 31.9 L 32.0-36.0 g/dL Red Cell Distribution Width 13.4 11.0-15.5 % Platelet Count 225 130-400 K/uL Mean Platelet Volume 9.8 7.5-10.5 fL Nucleated Red Blood Cells 0.0 0.0-0.19 % Sodium Level 143 136-145 mmol/L Potassium Level 3.8 3.5-5.1 mmol/L Chloride Level 108 101-111 mmol/L Carbon Dioxide Level 27 21-32 mmol/L Blood Urea Nitrogen 12 7-18 mg/dL Creatinine 1.1 H 0.5-1.0 mg/dL Glomerular Filtration Rate Calc 50 >90 mL/min Random Glucose 109 H 70-105 mg/dL Total Calcium 8.4 L 8.5-10.1 mg/dL Phosphorus Level 4.2 2.5-4.9 mg/dL Magnesium Level 2.00 1.80-2.40 mg/dL D-Dimer Quantitative (PE/DVT) 1029 *H 0-500 ng/mL Blood Gas Specimen Type Arterial Arterial Blood pH 7.461 H 7.350-7.450 Arterial Blood Partial Pressure CO2 33 32-45 mmHg Arterial Blood Partial Pressure O2 100.3 83.0-108.0 mmHg Arterial Blood HCO3 23.1 21.0-28.0 mmol/L Arterial Blood Oxygen Saturation 97.5 94.0-98.0 % Arterial Blood Base Excess -0.1 -2.0-3.0 mmol/L Hemoglobin (Blood Gas) 12.3 12.0-16.0 g/dL Sodium (Blood Gas) 136 136-145 MMOL/L Bedside Potassium (Blood Gas) 3.9 3.4-4.5 MMOL/L Bedside Chloride (Blood Gas) 105 98-107 MMOL/L Bedside Glucose (Blood Gas) 110 H 65-95 MG/DL Bedside Ionized Calcium (Blood Gas) 1.13 L 1.15-1.33 MMOL/L Bedside Lactic Acid (Blood Gas) 1.27 H 0.36-0.75 MMOL/L Blood Gas Temperature 37.0 35.5-37.0 CELSIUS Blood Gas Flow-by 2.00 0.00-15.00 L/min Blood Gas Vent Mode 2LNC ROOM AIR FiO2 28.0 % Blood Gas Specimen Comment ANTHONY TERAN. RR Test 01/28/25 01:11 01/28/25 01:08 01/28/25 00:44 Range/Units Urine Color LIGHT-YELLOW YELLOW Urine Appearance CLEAR CLEAR Urine pH 5.5 5.0-8.0 Urine Specific Wheeler 1.015 1.001-1.031 Urine Protein NEGATIVE NEGATIVE mg/dL Urine Glucose (UA) NEGATIVE NEGATIVE mg/dL Urine Ketones NEGATIVE NEGATIVE mg/dL Urine Occult Blood NEGATIVE NEGATIVE Urine Nitrate NEGATIVE NEGATIVE Urine Bilirubin NEGATIVE NEGATIVE mg/dL Urine Urobilinogen 0.2 0.2-1.0 mg/dL Urine Leukocyte Esterase 250 H NEGATIVE Alanna/uL Urine RBC 2-5 H 0-1 /HPF Urine WBC 11-25 H 0-1 /HPF Urine Squamous Epithelial Cells RARE 0-2 /HPF Urine Bacteria RARE None Seen /HPF Influenza Type A Antigen Negative For Type A NEGATIVE Influenza Type B Antigen Negative For Type B NEGATIVE SARS-CoV-2, RNA, NAAT NEGATIVE SARS CoV-2 NEGATIVE Group A Streptococcus Rapid negative NEGATIVE Immature Granulocyte % (Auto) 0.7 0-1 % Neutrophils (%) (Auto) 64.8 40.0-77.0 % Lymphocytes (%) (Auto) 23.7 21.0-51.0 % Monocytes (%) (Auto) 8.6 3.0-13.0 % Eosinophils (%) (Auto) 1.8 0.0-8.0 % Basophils (%) (Auto) 0.4 0.0-5.0 % Neutrophils # (Auto) 10.2 H 1.8-7.7 K/uL Lymphocytes # (Auto) 3.7 1.0-4.8 K/uL Monocytes # (Auto) 1.4 H 0.1-1.0 K/uL Eosinophils # (Auto) 0.29 0.00-0.70 K/uL Basophils # (Auto) 0.06 0.00-0.20 K/uL Absolute Immature Granulocyte (auto 0.11 0-1 K/uL Lactic Acid Level 1.7 0.8-2.5 mmol/L Total Creatine Kinase 44 21-232 U/L Troponin I High Sensitivity 8 4-50 ng/L B-Type Natriuretic Peptide 27 0-100 pg/mL Procalcitonin < 0.05 L 0.05-0.5 ng/mL Current Medications Medications (Trade) Dose Ordered Sig/Daniel Route PRN Reason Start Time Stop Time Status Last Admin Dose Admin Acetaminophen (TYLenol 325MG TAB) 650 mg Q6H PRN PO FEVER/MILD PAIN LEVEL 1-3 01/28/25 03:30 02/27/25 03:29 01/28/25 19:55 650 MG Acetaminophen (TYLenol 650MG SUPPOSITORY) 650 mg Q6H PRN RC FEVER / MILD PAIN 1-3 IF NPO 01/28/25 03:30 02/27/25 03:29 Albuterol Sulfate (Proventil 0.083% 2.5mg/3ml) 2.5 mg [id number] IH 01/28/25 06:00 02/27/25 05:59 01/29/25 07:27 2.5 MG Atorvastatin Calcium (LIPItor 20MG) 20 mg HS PO 01/29/25 21:00 02/28/25 20:59 Budesonide (Pulmicort 0.5 Mg/2ml) 0.5 mg BIDRESP IH 01/28/25 06:00 02/27/25 05:59 01/29/25 07:26 0.5 MG Docusate Sodium (COLace 100MG CAP) 100 mg BID PRN PO c 01/28/25 03:30 02/27/25 03:29 01/28/25 08:38 100 MG Doxycycline Hyclate 250 ml @ 125 mls/hr Q12H IV 01/28/25 03:30 02/07/25 03:29 01/29/25 03:51 125 MLS/HR Enoxaparin Sodium (Lovenox) 30 mg DAILY SQ 01/28/25 09:00 02/27/25 08:59 01/28/25 08:39 30 MG Famotidine (Pepcid 20mg Tab) 20 mg DAILY PO 01/28/25 09:00 02/27/25 08:59 01/28/25 08:38 20 MG Ferrous Sulfate (Ferrous Sulfate) 325 mg DAILY PO 01/28/25 09:00 02/27/25 08:59 01/28/25 08:38 325 MG Guaifenesin/ Dextromethorphan (RobiTUSSin DM 200/20MG 10ML) 10 ml Q4H PO 01/28/25 13:00 02/27/25 12:59 01/29/25 04:47 10 ML Insulin Human Regular (humuLIN R 100 UNIT/ML 3ML) INSULIN SLIDING SCAL... ACHS SQ 01/28/25 07:30 02/27/25 07:29 Ipratropium [place] (AtrovENT UD) 0.5 mg [id number] IH 01/28/25 06:00 02/27/25 05:59 01/29/25 07:26 0.5 MG Labetalol HCl (TRANdate 20MG SYG) 10 mg Q2H PRN IV SBP GREATER THAN 180 01/28/25 03:30 02/27/25 03:29 Lactulose (Constulose 20gm/ 30ml Udcup) 20 gm Q6H PRN PO CONSTIPATION 01/28/25 03:30 02/27/25 03:29 Losartan Potassium (CozAAR 50 mg TAB) 50 mg DAILY PO 01/29/25 09:00 02/28/25 08:59 Ondansetron HCl (zoFRAN 4MG INJ) 4 mg Q6H PRN IVP NAUSEA/VOMITING 01/28/25 03:30 02/27/25 03:29 Piperacillin Sod/ Tazobactam Sod (Zosyn 3.375gm+NS 50ml) 3.375 gm Q8H IVPB 01/28/25 10:00 02/07/25 09:59 01/29/25 01:51 3.375 GM Sodium Chloride (NS 50ml) 50 ml AD IV 01/28/25 10:00 01/29/25 08:01 DC Temazepam (restORIL 15 MG CAP) 15 mg HS PRN PO INSOMNIA/SLEEP 01/28/25 03:30 02/27/25 03:29 DIAGNOSTICS / RADIOLOGY: [ ] ASSESSMENT: Sepsis , POA Acute bronchitis , POA with failed outpatient antibiotic therapy Acute cystitis, POA Critically elevated D-dimer, rule out PE/DVT Leukocytosis, POA Acute on chronic kidney disease, GFR45 Hyperglycemia Pneumonitis/ bronchiolitis Obesity, BMI 30.3 Chronic problem list: Hypertension, obesity, spinal stenosis PLAN: -Admit to Medical floor with continuous telemetry monitoring Sepsis , POA Acute bronchitis POA with failed outpatient antibiotic therapy continue Zosyn, doxycycline Pneumonia ruled out pulmonology recs appreciated Pending bedside swallow evaluation Pending discharge disposition Acute cystitis, POA -urine culture negative Critically elevated D-dimer, rule out PE/DVT -ruled out DVT , PE Other: -Monitor respiratory status closely. -Continue oxygen therapy as needed. Titrate oxygen prn to keep Spo2>/+=92%. -Albuterol and Atrovent scheduled. -RT to provide IS and education on use. -Robitussin DM as needed cough. -Solu-Medrol IV daily. -Tylenol as needed fever/ pain. -Glucometer checks AC & HS needed with insulin regular sliding scale coverage as needed. -Blood pressure checks every 4 hours and as needed. - labetalol IV as needed systolic blood pressure greater than 160 -GI and DVT prophylaxis: Pepcid and Lovenox ATTESTATION BY PHYSICIAN I have seen and examined the patient. I reviewed the documentation, medical decision making, and treatment plan as noted by the resident provider above. I agree with the findings and plan of care. Dariel Wood MD, ANCHU A MD January 29, 2025 08:52
[2025-01-29] MEDS: LoSARTan 50 MG TABLET PO SCH (09:00)
--- NOTE | 2025-01-29 12:12 | PN ---
[facility] PROGRESS NOTE Date Patient Seen: January 29, 2025 Time of Visit: 11:54 Supervising Physician: [Dr. Lima] Primary Care Physician: [[facility]] Outpatient Specialists: [ ] Inpatient Consults: [[facility]] PROBLEM LIST: Subacute bronchitis, failed outpatient management Acute complicated cystitis, POA urine culture negative Critically elevated D-dimer, (-) PE/DVT Leukocytosis, POA improved Allergies Acute on chronic kidney disease, GFR45 Hyperglycemia Obesity, BMI 30.3 Hypertension, Spinal stenosis INTERVAL HISTORY: [Patient is evaluated at bedside. She continues with a cough but is mostly nonproductive. Her CTA of the chest was negative for significant infiltrates but does show some pulmonary fibrotic changes. States she was exposed to secondhand smoke for over 25 years. WBCs are improved today, continues on IV antibiotics with some improvement. V/Q scan and venous doppler were negative for PE/DVT. Will evaluate other potential causes.] REVIEW OF SYSTEMS: 12 point ROS reviewed with patient. Pertinent positives mentioned above. Otherwise negative. PHYSICAL EXAM: GENERAL: alert, weak, awake oriented x 3 HEENT: EOMI, Sclera non icteric, moist mucosa NECK: Supple, no JVD, trachea midline LUNGS: Clear breath sounds bilaterally. No wheezes HEART: Regular rate and rhythm. Normal S1 and S2, without murmurs ABD: Abdomen soft, nontender. Bowel sounds present EXT: No clubbing cyanosis or edema NEURO: Alert and oriented to person, follows commands Vital Signs (last 8hr) Date Time Temp Pulse Resp B/P (MAP) Pulse Ox O2 Delivery O2 Flow Rate FiO2 01/29/25 11:43 82 20 01/29/25 08:00 98.2 81 20 135/73 98 Room Air 21 01/29/25 07:29 77 20 01/29/25 07:29 7 19 N/A Room Air 21 01/29/25 03:57 98.2 79 17 111/56 97 Room Air LABS: Hematology Labs: Test 01/29/25 03:57 01/28/25 00:44 Range/Units White Blood Count 11.3 H 4.8-10.8 K/uL Red Blood Count 3.75 L 4.00-5.50 MIL/uL Hemoglobin 11.0 L 12.0-16.0 g/dL Hematocrit 34.5 L 36-48 % Mean Corpuscular Volume 92.0 79-99 fL Mean Corpuscular Hemoglobin 29.3 27.0-33.0 pg Mean Corpuscular Hemoglobin Concent 31.9 L 32.0-36.0 g/dL Red Cell Distribution Width 13.4 11.0-15.5 % Platelet Count 225 130-400 K/uL Mean Platelet Volume 9.8 7.5-10.5 fL Nucleated Red Blood Cells 0.0 0.0-0.19 % Immature Granulocyte % (Auto) 0.7 0-1 % Neutrophils (%) (Auto) 64.8 40.0-77.0 % Lymphocytes (%) (Auto) 23.7 21.0-51.0 % Monocytes (%) (Auto) 8.6 3.0-13.0 % Eosinophils (%) (Auto) 1.8 0.0-8.0 % Basophils (%) (Auto) 0.4 0.0-5.0 % Neutrophils # (Auto) 10.2 H 1.8-7.7 K/uL Lymphocytes # (Auto) 3.7 1.0-4.8 K/uL Monocytes # (Auto) 1.4 H 0.1-1.0 K/uL Eosinophils # (Auto) 0.29 0.00-0.70 K/uL Basophils # (Auto) 0.06 0.00-0.20 K/uL Absolute Immature Granulocyte (auto 0.11 0-1 K/uL Chemistry Labs: Test 01/29/25 11:33 01/29/25 03:57 01/28/25 00:44 Range/Units Whole Blood Glucose 111 H 70-110 MG/DL Sodium Level 143 136-145 mmol/L Potassium Level 3.8 3.5-5.1 mmol/L Chloride Level 108 101-111 mmol/L Carbon Dioxide Level 27 21-32 mmol/L Blood Urea Nitrogen 12 7-18 mg/dL Creatinine 1.1 H 0.5-1.0 mg/dL Glomerular Filtration Rate Calc 50 >90 mL/min Random Glucose 109 H 70-105 mg/dL Total Calcium 8.4 L 8.5-10.1 mg/dL Phosphorus Level 4.2 2.5-4.9 mg/dL Magnesium Level 2.00 1.80-2.40 mg/dL Lactic Acid Level 1.7 0.8-2.5 mmol/L Total Creatine Kinase 44 21-232 U/L Troponin I High Sensitivity 8 4-50 ng/L B-Type Natriuretic Peptide 27 0-100 pg/mL Procalcitonin < 0.05 L 0.05-0.5 ng/mL Coagulation Labs: Test 01/28/25 06:06 Range/Units D-Dimer Quantitative (PE/DVT) 1029 *H 0-500 ng/mL DIAGNOSTICS / RADIOLOGY RESULTS: [ ] PLAN Order Echocardiogram Order pertussis culture Obtain baseline PFT Start montelukast V/Q scan and venous Doppler negative Continue nebulizer solution Continue IV antibiotics Supplemental oxygen as needed, wean off as tolerated Cough medication as needed Further management per primary Disposition per primary NEURO: Minimize central acting medications as possible. Maintain fall precautions, adequate lighting during the day PULMONARY: Supplemental 02 as needed. Maintain aspiration precautions at all times CARDIOVASCULAR: Follow hemodynamics. Vital signs per facility protocol GI & NUTRITION: Continue with nutritional support. Continue stool softeners and laxatives as needed. KIDNEYS & ELECTROLYTES: Strict monitoring of intake, output and overall fluid balance. Avoid nephrotoxic medications to the extent possible. Medications to be dosed according to renal function. Monitor electrolytes and replace as needed ENDOCRINE: Maintain blood glucose between 100-180 at all times. Hypoglycemia protocol in place INFECTIOUS DISEASE: Trend temperature, WBC and procalcitonin level Follow cultures, deescalate antibiotics as soon as possible. Panculture if new onset fever ONCOLOGY/HEMATOLOGY/COAGULATION: Monitor for s/s of bleeding Monitor hemoglobin, coagulation studies as needed SKIN: Pressure ulcer prevention per facility protocol Specialty mattress ORTHO/REHAB: Continue PT/OT Prophylaxis: Continue GI and DVT prophylaxis Code Status: Full Resuscitation Disposition: TBD Other: Total patient care time exceeds 46 minutes excluding all procedures. MAXIMILIANO GONZALEZ January 29, 2025 12:12
--- NOTE | 2025-01-29 17:45 | NUR ---
BEDSIDE SWALLOW EVAL COMPLETED. No s/s of aspiration. Recommend regular solids, thin liquids and pills whole with liquids as tolerated. Compensatory strategies: 1. sit upright during oral intake HALL SUPERVISOR reviewed results and recommendations with patient/family and nurse Deana. HALL SUPERVISOR educated patient on risks and consequences of aspiration. Speech therapy not warranted at this time. All questions answered. Addendum: 01/29/[address] [facility] Amended: Links added.
[2025-01-29] MEDS: atorVAStatin 20 MG TABLET PO SCH (21:59)
[2025-01-30] VITALS (8 sets, daily range): BP systolic 111–120; BP diastolic 58–68; PULSE 73–80; RESP 16–19; TEMP 98–98.5; O2SAT 97–98
[2025-01-30 06:05] LABS: BASOPHILS # (AUTO) 0.04 K/uL (0.00-0.20); BASOPHILS % (AUTO) 0.4 % (0.0-5.0); EOSINOPHILS # (AUTO) 0.39 K/uL (0.00-0.70); EOSINOPHILS % (AUTO) 4.2 % (0.0-8.0); HEMATOCRIT 33.8 % (36-48); IMMATURE GRANULOCYTE ABSOLUTE 0.06 K/uL (0-1); LYMPHOCYTES # (AUTO) 2.4 K/uL (1.0-4.8); LYMPHOCYTES % (AUTO) 25.3 % (21.0-51.0); MEAN CORPUSCULAR HEMOGLOBIN 28.8 pg (27.0-33.0); MEAN CORPUSCULAR HGB CONC 31.7 g/dL (32.0-36.0); MEAN CORPUSCULAR VOLUME 91.1 fL (79-99); MONOCYTES % (AUTO) 10.3 % (3.0-13.0); NEUTROPHILS # (AUTO) 5.6 K/uL (1.8-7.7); NEUTROPHILS % (AUTO) 59.2 % (40.0-77.0); PLATELET COUNT (AUTO) 222 K/uL (130-400); RED BLOOD CELL COUNT(AUTO) 3.71 MIL/uL (4.00-5.50); RED CELL DISTRIBUTION WIDTH 13.4 % (11.0-15.5); WHITE BLOOD COUNT (AUTO) 9.4 K/uL (4.8-10.8)
[2025-01-30 06:38] LABS: CREATININE 1.1 mg/dL (0.5-1.0)
[2025-01-30] MEDS: ZOSYN 3.375GM +NS 50ML IVPB SCH (06:40)
--- NOTE | 2025-01-30 08:12 | DS ---
Discharge Summary Hospital Course Summary: Ms. Luis is a 84-year-old female with a past medical history of hypertension, obesity, and breast/stomach cancer who presented to the emergency department for evaluation of a persistent cough and shortness of breath. Patient was diagnosed with pneumonia approximately one week ago and has already taking azithromycin and Augmentin with little to no relief. Per external medication review, the patient has also been on Prednisone , doxycycline, benzonatate, and montelukast for this persistent cough. At the time of presentation, Vitals : Temperature 99.9, Heart rate 112, RR 18/min, BP 120/87 mm of Hg .Labs remarkable for WBCs 15.7. CT chest without contrast showed a small rt lung bulla .She is admitted for further evaluation and treatment . 5.7.25: Patient is seen in the room, with no acute respiratory distress. She is saturating adequately in room air. Ddimer is elevated at 1029. Well score <4, V/Q scan negative . CT scan shows rt bulla and features of air entrapment . Patient does provide a history of passive smoking for more than 25 years .As per the patient , nebulization is helping her. Will continue antibiotics at this time .Pulmonology recommendations appreciated. Respiratory culture pending . 01.30.25: Patient is seen in the room-No acute events reported overnight . Patient is breathing comfortably in room air . As per the patient , nebulization is helping her. Respiratory culture Gram stain was showing rare Gram-positive cocci and respiratory culture report is pending. This was conveyed to the patient, however the patient requested discharge today. Patient is clinically stable at the time of discharge . 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 Pelaez] Reason for Consultation: [Pneumonia] Primary Care Physician: [[facility]] Outpatient Specialists: [ ] Inpatient Consults: [[facility]] PROBLEM LIST: Subacute bronchitis, failed outpatient management Acute complicated cystitis, POA Critically elevated D-dimer, rule out PE/DVT Leukocytosis, POA Acute on chronic kidney disease, GFR45 Hyperglycemia Obesity, BMI 30.3 Hypertension, Spinal stenosis HPI: [This is an 84-year-old female with a history of breaths/stomach cancer who presented to the ED for evaluation of subacute cough with failed outpatient management. Her labs on admission reveal leukocytosis of 15, elevated creatinine of 1.2 But were otherwise unremarkable. Procalcitonin was normal, COVID and flu negative, ABG within normal limits. Troponin was negative, BNP normal, lactic acid normal. Her urine showed leukocyte esterase. She was placed on Zosyn doxycycline. Patient had a critically elevated D-dimer, pending V/Q scan and venous Doppler. Her CT of the chest was grossly unremarkable. [facility] was consulted for treatment of pneumoniae.] PAST MEDICAL HX: see above PAST SURGICAL HX: noncontributory SOCIAL HISTORY: No tobacco, ETOH, or illicit drug use Coded Allergies: tramadol (Unverified Allergy, Unknown, 03/16/22) REVIEW OF SYSTEMS: 12 point ROS reviewed with patient. Pertinent positives mentioned above. Otherwise negative. PHYSICAL EXAM: GENERAL: alert, weak, awake oriented x 3 HEENT: EOMI, Sclera non icteric, moist mucosa NECK: Supple, no JVD, trachea midline LUNGS: Clear breath sounds bilaterally. No wheezes HEART: Regular rate and rhythm. Normal S1 and S2, without murmurs ABD: Abdomen soft, nontender. Bowel sounds present EXT: No clubbing cyanosis or edema NEURO: Alert and oriented to person, follows commands Vital Signs (last 8hr) Date Time Temp Pulse Resp B/P (MAP) Pulse Ox O2 Delivery O2 Flow Rate FiO2 01/28/25 12:00 97.9 74 16 135/65 95 Room Air* 0 21 01/28/25 11:35 75 20 01/28/25 11:35 75 20 N/A Room Air 01/28/25 07:42 97.9 72 12 115/59 100 Nasal Cannula* 2 28 01/28/25 07:06 78 20 N/A Room Air 21 01/28/25 07:04 78 20 01/28/25 05:57 98.6 67 20 121/50 99 Nasal Cannula* 2.0 N/A LABS: Hematology Labs: Test 01/28/25 00:44 Range/Units White Blood Count 15.7 H 4.8-10.8 K/uL Red Blood Count 4.36 4.00-5.50 MIL/uL Hemoglobin 12.8 12.0-16.0 g/dL Hematocrit 40.0 36-48 % Mean Corpuscular Volume 91.7 79-99 fL Mean Corpuscular Hemoglobin 29.4 27.0-33.0 pg Mean Corpuscular Hemoglobin Concent 32.0 32.0-36.0 g/dL Red Cell Distribution Width 13.3 11.0-15.5 % Platelet Count 214 130-400 K/uL Mean Platelet Volume 11.2 H 7.5-10.5 fL Immature Granulocyte % (Auto) 0.7 0-1 % Neutrophils (%) (Auto) 64.8 40.0-77.0 % Lymphocytes (%) (Auto) 23.7 21.0-51.0 % Monocytes (%) (Auto) 8.6 3.0-13.0 % Eosinophils (%) (Auto) 1.8 0.0-8.0 % Basophils (%) (Auto) 0.4 0.0-5.0 % Neutrophils # (Auto) 10.2 H 1.8-7.7 K/uL Lymphocytes # (Auto) 3.7 1.0-4.8 K/uL Monocytes # (Auto) 1.4 H 0.1-1.0 K/uL Eosinophils # (Auto) 0.29 0.00-0.70 K/uL Basophils # (Auto) 0.06 0.00-0.20 K/uL Absolute Immature Granulocyte (auto 0.11 0-1 K/uL Nucleated Red Blood Cells 0.0 0.0-0.19 % Chemistry Labs: Test 01/28/25 11:24 01/28/25 00:44 Range/Units Whole Blood Glucose 103 70-110 MG/DL Sodium Level 141 136-145 mmol/L Potassium Level 4.0 3.5-5.1 mmol/L Chloride Level 103 101-111 mmol/L Carbon Dioxide Level 29 21-32 mmol/L Blood Urea Nitrogen 15 7-18 mg/dL Creatinine 1.2 H 0.5-1.0 mg/dL Glomerular Filtration Rate Calc 45 >90 mL/min Random Glucose 109 H 70-105 mg/dL Lactic Acid Level 1.7 0.8-2.5 mmol/L Total Calcium 8.9 8.5-10.1 mg/dL Magnesium Level 2.00 1.80-2.40 mg/dL Total Creatine Kinase 44 21-232 U/L Troponin I High Sensitivity 8 4-50 ng/L B-Type Natriuretic Peptide 27 0-100 pg/mL Procalcitonin < 0.05 L 0.05-0.5 ng/mL Coagulation Labs: Test 01/28/25 06:06 Range/Units D-Dimer Quantitative (PE/DVT) 1029 *H 0-500 ng/mL DIAGNOSTICS / RADIOLOGY RESULTS: [ ] PLAN Follow venous Doppler and V/Q scan results Continue nebulizer solution Continue IV antibiotics Supplemental oxygen as needed, wean off as tolerated Cough medication as needed Further management per primary Disposition per primary NEURO: Minimize central acting medications as possible. Maintain fall precautions, adequate lighting during the day PULMONARY: Supplemental 02 as needed. Maintain aspiration precautions at all times CARDIOVASCULAR: Follow hemodynamics. Vital signs per facility protocol GI & NUTRITION: Continue with nutritional support. Continue stool softeners and laxatives as needed. KIDNEYS & ELECTROLYTES: Strict monitoring of intake, output and overall fluid balance. Avoid nephrotoxic medications to the extent possible. Medications to be dosed according to renal function. Monitor electrolytes and replace as needed ENDOCRINE: Maintain blood glucose between 100-180 at all times. Hypoglycemia protocol in place INFECTIOUS DISEASE: Trend temperature, WBC and procalcitonin level Follow cultures, deescalate antibiotics as soon as possible. Panculture if new onset fever ONCOLOGY/HEMATOLOGY/COAGULATION: Monitor for s/s of bleeding Monitor hemoglobin, coagulation studies as needed SKIN: Pressure ulcer prevention per facility protocol Specialty mattress ORTHO/REHAB: Continue PT/OT Prophylaxis: Continue GI and DVT prophylaxis Code Status: Full Resuscitation Disposition: TBD Other: Total patient care time exceeds 35 minutes excluding all procedures. MAXIMILIANO LUIS January 28, 2025 13:02 Electronically Signed by: MAXIMILIANO MADRID01/28/25 1611 Electronically Co-Signed by: SHIRA CHOU MD01/29/25 1016 Procedure(s): PROCEDURE: CHEST WO - CT CHEST W/O CONTRAST CT NONCONTRAST CHEST Comparison Study: none History: recurrent cough, dyspnea Technique: Helical CT of the chest without IV contrast at 5 mm collimation. Coronal and sagittal reformations also done. CT Dose Index (CTDI): 2.38 mGy Dose Length Product (DLP): 94.8 total mGy-cm Findings: The airway is intact. The trachea and major bronchi are unremarkable. The chest exam shows no pulmonary nodules or masses. No significant pulmonary parenchymal abnormalities are noted. No pulmonary infiltrates or mass lesions are seen. No pleural effusions are identified. There is no pneumothorax. There is no evidence of pneumomediastinum. The nonenhanced exam of the anahi and mediastinum is unremarkable. No evidence of hilar enlargement is seen. The aorta shows no aneurysmal dilatation or significant atheromatous calcification. No significant brachiocephalic vascular abnormalities are seen. The heart is unremarkable. It is not enlarged. No significant coronary arterial calcifications are seen. There is no pericardial effusion. The rib cage appears unremarkable. There are postoperative changes of the right breast. The dorsal spine shows no significant abnormalities. IMPRESSION: NORMAL CT OF THE CHEST WITHOUT CONTRAST. This study was performed using dose reduction techniques to include automated exposure control and/or adjustment of the mA and/or kV according to patient size. DICTATED BY: JEY TATE MD DATE: 01/28/25 0819 ELECTRONICALLY SIGNED BY: JEY TATE MD DATE: 01/28/25 0949 PROCEDURE: VENOUS ROSEANNE - US VENOUS DOPPLER BILATERAL Exam Type: US VENOUS DOPPLER BILATERAL Clinical Information: Elevated ddimer, cough Comparison: None Findings: The examination shows normal deep venous system. There is normal compressibility at all levels. There is no intraluminal clot. There is no occlusion. Adequate response is obtained on augmentation. Impression: No evidence of DVT. DICTATED BY: JEY TATE MD DATE: 01/28/25 1010 ELECTRONICALLY SIGNED BY: JEY TATE MD DATE: 01/28/25 1013 PROCEDURE: PULM VQ - NM PULMONARY/LUNG VQ SCAN Exam Type: NM PULMONARY/LUNG VQ SCAN Clinical Information: ELEVATED D-DIMER Comparison: None Findings: Anterior and posterior pulmonary ventilation scan was performed during and following inhalation of 6.4 mCi of xenon-133 gas and pulmonary perfusion images were performed following intravenous injection of 5 mCi of 99m Tc-labeled MAA. Ventilation: homogeneous distribution of the xenon gas in both lungs during the single breath and equilibrium phases. Symmetrical clearance of the xenon gas demonstrated in the wash out phase. No evidence of air trapping. Perfusion: homogeneous distribution of the radiolabeled particles in both lungs with normal hilar and cardiac attenuation defect. No wedge shaped or focal perfusion defects are seen. Impression: No evidence of pulmonary embolism. DICTATED BY: JEY TATE MD DATE: 01/28/25 1610 ELECTRONICALLY SIGNED BY: JEY TATE MD DATE: 01/28/25 1614 RUN DATE: 01/30/25 [facility] [address] 1 RUN TIME: [phone] [address], [place] [address] Department of Laboratories CLACACIA # [id number] Promotion Officer: Angie Egan DO Specimen Report ----- ------- PATIENT: ANDREW LUIS I ACCT: [id number] LOC: [facility] U: [id number] AGE/SX: 84/F ROOM: [facility] RE01/28/[address]: CUCO WALLER MD : 1940 BED: 1 DIS: STATUS: ADM IN TLOC: SPEC: [id number] ELTON: 01/28/25-1199 STATUS: RES REQ: [id number] RECD: 01/28/25-1220 [facility] DR: MO [facility] SOURCE: SPUTUM ENTR: 01/28/25-[address] [facility] [address]: CUCO WALLER MD SPDESC: GLADYS ROSS Jr., MD ORDERED: RESP CULTURE Procedure Result Alireza Date-Time GRAM STAIN Final 01/29/25-8 [facility] GRAM STAIN RESULT: FAIR SPECIMEN [ <10 SEC's/LPF AND 10-25 PMN's/LPF ] RARE GRAM POSITIVE COCCI RARE YEAST RESPIRATORY CULTURE Preliminary 01/30/25-947 [facility] COLONY DESCRIPTION: REPORT 1: 1+ ORAL DOC ; STUDIES TO CONTINUE Test(s) performed by: [facility] [address] [place] [address] @ [facility] Test Performed at: [facility] [address], [place], [place] Medical Waste Water Worker: Heriberto Adams D.O. RUN DATE: 01/29/25 [facility] [address] 1 RUN TIME: [phone] [address], [place] [address] Department of Laboratories [place] # [id number] Promotion Officer: Angie Egan DO Specimen Report PATIENT: ANDREW LUIS Asa ACCT: [id number] LOC: [facility] U: [id number] AGE/SX: 84/F ROOM: 325 RE01/28/[address]: CUCO WALLER MD : 1940 BED: 1 DIS: STATUS: ADM IN TLOC: SPEC: [id number] ELTON: 01/28/25 STATUS: COMP REQ: [id number] RECD: 01/28/[address]: SATNAM BRONSON SOURCE: URINE CC ENTR: 01/28/[address]: DELORES SPDC: SATNAM MURILLO MD ORDERED: URINE CULTURE Procedure Result Alireza Date-Time URINE CULTURE Final 01/29/25 REPORT URINE <=10,000 CFU RUN DATE: 01/30/25 [facility] [address] 1 RUN TIME: [phone] [address], [place] [address] Department of Laboratories [place] # [id number] Promotion Officer: Heriberto S, Dolz, DO Specimen Report PATIENT: ANDREW LUIS I ACCT: [id number] LOC: [facility] U: [id number] AGE/SX: 84/F ROOM: 325 RE01/28/[address]: CUCO WALLER MD : 1940 BED: 1 DIS: STATUS: ADM IN TLOC: SPEC: [id number] ELTON: 01/28/25 STATUS: RES REQ: [id number] RECD: 01/28/25 [facility] DR: SATNAM BRONSON SOURCE: BLOOD ENTR: 01/28/[address]: DELORES SPDESC: SATNAM MURILLO MD ORDERED: BLOOD CULTURE COMMENTS: What is the Source? BLOOD Procedure Result Alireza Date-Time BLOOD CULT Preliminary 01/30/25-0126 NO GROWTH AFTER 48 HOURS Assessment/Plan: DISCHARGE DIAGNOSIS : Sepsis , POA Acute bronchitis , POA with failed outpatient antibiotic therapy Acute cystitis, POA Critically elevated D-dimer, rule out PE/DVT Leukocytosis, POA Acute on chronic kidney disease, GFR45 Hyperglycemia Pneumonitis/ bronchiolitis Obesity, BMI 30.3 Chronic problem list: Hypertension, obesity, spinal stenosis ASSESSMENT : Sepsis , POA Acute bronchitis POA with failed outpatient antibiotic therapy Patient received 3 days of IV Zosyn and IV doxycycline continue doxycycline Pneumonia ruled out continue nebulization Follow with your primary care physician in 2 to 3 days after discharge Acute cystitis, POA -urine culture negative Critically elevated D-dimer, rule out PE/DVT -ruled out DVT , PE Discharge Instructions: DATE OF ADMISSION: 01.28.25 DATE OF DISCHARGE: 01.30.25 DISPOSITION: HOME CONDITION: Medically stable CONSULTANTS: PULMONOLOGY FOLLOW UP APPOINTMENTS: Follow up with your primary care doctor in 2 to 3 days . PROCEDURES: NA IMAGING: report attached to summary MICROBIOLOGY: report attached to summary HOME MEDICATIONS: see med rec NEW MEDICATIONS: See medication reconciliation EMERGENCY INSTRUCTIONS: The patient was instructed to present to the nearest Emergency department or call 911 once their symptoms will return or worsen. Home Medications: Reported Medications Rosuvastatin Calcium (Rosuvastatin Calcium) 10 Mg Tablet, 1 TAB PO DAILY 01/28/25 Losartan Potassium (Losartan Potassium) 50 Mg Tablet, 50 MG PO DAILY, TAB 11/29/18 Discontinued Reported Medications Benzonatate (Benzonatate) 100 Mg Capsule, 100 MG PO TIDP PRN for COUGH/COLD SYMPTOMS, CAP 11/29/18 Discontinued Scripts Oxycodone HCl/Acetaminophen (Percocet 5-325 mg Tablet) 1 Each Tablet, 1 EACH PO Q6H for pain, #10 TAB 0 Refills Prov:JANELLE WOOD MD 01/15/23 Docusate Sodium (Colace) 100 Mg Capsule, 100 MG PO TID for constipation, #30 CAP 0 Refills Prov:JANELLE WOOD MD 01/15/23 Naproxen (Naproxen) 375 Mg Tablet, 375 MG PO BID for 10 Days, #20 TAB 0 Refills Prov:JANELLE WOOD MD 01/15/23 D-Methorphan Hb/P-Epd HCl/Bpm (Bromfed Dm Cough Syrup) 118 Ml Syrup, 10 ML PO QID for cough, #120 ML Prov:CATRACHITO MATTA MD 03/16/22 Clindamycin HCl (Clindamycin HCl) 150 Mg Capsule, 150 MG PO TID, #30 CAP 0 Refills Prov:LUIS MIGUEL RICHEY MD 12/23/21 Time spent arranging discharge: 1-30 minutes ATTESTATION BY PHYSICIAN I have seen and examined the patient. I reviewed the documentation, medical decision making, and treatment plan as noted by the resident provider above. I agree with the findings and plan of care. Dariel Wood MD, ANCHU A MD January 30, 2025 08:12
[2025-01-30] MEDS ORDERED: DOXY100C5 PO (08:15)
[2025-01-30] MEDS ORDERED: BENZ-39 PO (08:15)
[2025-01-30] MEDS: monteLUKAST sodIUM 10 MG TAB PO SCH (08:32)
[2025-01-30] MEDS ORDERED: ALBU2.5V2 NEB (14:55)
--- NOTE | 2025-01-30 16:19 | PN ---
[facility] PROGRESS NOTE Date Patient Seen: January 30, 2025 Time of Visit: 16:19 Supervising Physician: [Dr. Wu] Primary Care Physician: [[facility]] Outpatient Specialists: [ ] Inpatient Consults: [[facility]] PROBLEM LIST: Subacute bronchitis, failed outpatient management Acute complicated cystitis, POA urine culture negative Critically elevated D-dimer, (-) PE/DVT Leukocytosis, POA improved Allergies Acute on chronic kidney disease, GFR45 Hyperglycemia Obesity, BMI 30.3 Hypertension, Spinal stenosis INTERVAL HISTORY: [Patient is evaluated at bedside. She continues with a cough but is mostly nonproductive. Her CTA of the chest was negative for significant infiltrates but does show some pulmonary fibrotic changes. States she was exposed to secondhand smoke for over 25 years. WBCs are improved today, continues on IV antibiotics with some improvement. V/Q scan and venous doppler were negative for PE/DVT. Will evaluate other potential causes.] 01/30 patient is evaluated at bedside. She states her cough is much improved. Has been initiated on montelukast for treatment of allergies. No current chest pain or shortness of breadth. Echocardiogram is WNL with EF of 55-60%. Patient is advised to follow up with Pulmonary outpatient for management of pulmonary fibrosis upon discharge, verbalized understanding. REVIEW OF SYSTEMS: 12 point ROS reviewed with patient. Pertinent positives mentioned above. Otherwise negative. PHYSICAL EXAM: GENERAL: alert, weak, awake oriented x 3 HEENT: EOMI, Sclera non icteric, moist mucosa NECK: Supple, no JVD, trachea midline LUNGS: Clear breath sounds bilaterally. No wheezes HEART: Regular rate and rhythm. Normal S1 and S2, without murmurs ABD: Abdomen soft, nontender. Bowel sounds present EXT: No clubbing cyanosis or edema NEURO: Alert and oriented to person, follows commands Vital Signs (last 8hr) Date Time Temp Pulse Resp B/P (MAP) Pulse Ox O2 Delivery O2 Flow Rate FiO2 01/30/25 12:00 98.4 77 17 116/68 98 Room Air 21 01/30/25 11:37 73 19 LABS: Hematology Labs: Test 01/30/25 05:40 Range/Units White Blood Count 9.4 4.8-10.8 K/uL Red Blood Count 3.71 L 4.00-5.50 MIL/uL Hemoglobin 10.7 L 12.0-16.0 g/dL Hematocrit 33.8 L 36-48 % Mean Corpuscular Volume 91.1 79-99 fL Mean Corpuscular Hemoglobin 28.8 27.0-33.0 pg Mean Corpuscular Hemoglobin Concent 31.7 L 32.0-36.0 g/dL Red Cell Distribution Width 13.4 11.0-15.5 % Platelet Count 222 130-400 K/uL Mean Platelet Volume 10.0 7.5-10.5 fL Immature Granulocyte % (Auto) 0.6 0-1 % Neutrophils (%) (Auto) 59.2 40.0-77.0 % Lymphocytes (%) (Auto) 25.3 21.0-51.0 % Monocytes (%) (Auto) 10.3 3.0-13.0 % Eosinophils (%) (Auto) 4.2 0.0-8.0 % Basophils (%) (Auto) 0.4 0.0-5.0 % Neutrophils # (Auto) 5.6 1.8-7.7 K/uL Lymphocytes # (Auto) 2.4 1.0-4.8 K/uL Monocytes # (Auto) 1.0 0.1-1.0 K/uL Eosinophils # (Auto) 0.39 0.00-0.70 K/uL Basophils # (Auto) 0.04 0.00-0.20 K/uL Absolute Immature Granulocyte (auto 0.06 0-1 K/uL Nucleated Red Blood Cells 0.0 0.0-0.19 % Chemistry Labs: Test 01/30/25 05:40 01/29/25 15:37 01/29/25 03:57 Range/Units Sodium Level 141 136-145 mmol/L Potassium Level 4.0 3.5-5.1 mmol/L Chloride Level 105 101-111 mmol/L Carbon Dioxide Level 26 21-32 mmol/L Blood Urea Nitrogen 12 7-18 mg/dL Creatinine 1.1 H 0.5-1.0 mg/dL Glomerular Filtration Rate Calc 50 >90 mL/min Random Glucose 124 H 70-105 mg/dL Lactic Acid Level 1.6 0.8-2.5 mmol/L Total Calcium 8.5 8.5-10.1 mg/dL C-Reactive Protein, Quantitative 25.40 H 0.5-3.0 mg/L Whole Blood Glucose 78 70-110 MG/DL Phosphorus Level 4.2 2.5-4.9 mg/dL Magnesium Level 2.00 1.80-2.40 mg/dL DIAGNOSTICS / RADIOLOGY RESULTS: [ ] PLAN Order Echocardiogram Follow pertussis culture results Obtain baseline PFT Continue montelukast V/Q scan and venous Doppler negative Continue nebulizer solution Continue IV antibiotics Supplemental oxygen as needed, wean off as tolerated Cough medication as needed Further management per primary Disposition per primary NEURO: Minimize central acting medications as possible. Maintain fall precautions, adequate lighting during the day PULMONARY: Supplemental 02 as needed. Maintain aspiration precautions at all times CARDIOVASCULAR: Follow hemodynamics. Vital signs per facility protocol GI & NUTRITION: Continue with nutritional support. Continue stool softeners and laxatives as needed. KIDNEYS & ELECTROLYTES: Strict monitoring of intake, output and overall fluid balance. Avoid nephrotoxic medications to the extent possible. Medications to be dosed according to renal function. Monitor electrolytes and replace as needed ENDOCRINE: Maintain blood glucose between 100-180 at all times. Hypoglycemia protocol in place INFECTIOUS DISEASE: Trend temperature, WBC and procalcitonin level Follow cultures, deescalate antibiotics as soon as possible. Panculture if new onset fever ONCOLOGY/HEMATOLOGY/COAGULATION: Monitor for s/s of bleeding Monitor hemoglobin, coagulation studies as needed SKIN: Pressure ulcer prevention per facility protocol Specialty mattress ORTHO/REHAB: Continue PT/OT Prophylaxis: Continue GI and DVT prophylaxis Code Status: Full Resuscitation Disposition: TBD Other: Total patient care time exceeds 46 minutes excluding all procedures. MAXIMILIANO GONZALEZ January 30, 2025 16:19
--- NOTE | 2025-01-30 16:32 | NUR ---
PATIENT DISCHARGED HOME ID BAND AND IV REMOVED. DISCHARGE INSTRUCTIONS EXPLAINED AND GIVEN TO PATIENT. PATIENT VERBALIZED UNDERSTANDING. BELONGINGS PACKED AND TAKEN BY PATIENT. WHEELED DOWN TO PRIVATE CAR.
--- NOTE | 2025-01-31 01:23 | HMCSR ---
APPROVED REPORT EXAM: Two-dimensional and M-mode echocardiogram with Doppler and color Doppler. INDICATION ICD: R06.02 Shortness of breath 2D Dimensions IVSd1.0 (0.7-1.1cm)LVEF(%)66.6 (>50%)LVED Vol(simp.)52.0 mL LVDd4.1 (3.8-5.6cm)FS(%)36 %LVES Vol(simp.)18.0 mL PWd0.9 (0.7-1.1cm)LA (2D)3.4 (1.6-4.0cm)LVEF(%, simp.)65 % IVSs1.3 cmAo Root(2D)2.6 (2.0-3.7cm)LA ESV INDEX (BP)34.36 mL/m2 LVDs2.6 (2.5-4.0cm)LVOT diam2.2 (1.8-2.4cm) PWs1.3 cmIVC diam1.1 cm Deformation Strain Apical 4-18.6 % Apical 2-16.2 % Apical 3-17.2 % Global Strain-17.3 % M-Mode Dimensions EPSS0.5 cm LA (MM)3.5 (1.6-4.0cm) Ao Root(MM)3.4 (2.0-3.7cm) Aortic Valve AoV Vmax1.3 m/Walter Peak GR6.6 mmHgLVOT Vmax1.0 m/s AoV VTI0.3 mAo Mean GR3.5 mmHgLVOT VTI0.23 m DERICK (VMAX)2.91 cm2AVA (VTI) 2.9 cm2 Mitral Valve MV E Vmax64.5 cm/sDECEL [id number] ms MV A Vmax96.7 cm/sP 1/2 T42 ms E/A ratio0.7MVA (PHT)5.2 cm2 TDI E/E' Ibpbpo13.1E/E' Tqtmgwh63.0 Medial E' Peak V4.59 cm/sLateral E' Peak V5.88 cm/s Pulmonary Valve PV Vmax1.1 m/sPV VTI0.22 mPV Mean GR2.6 mmHg PV Peak GR5.3 mmHg Tricuspid Valve TR Vmax2.0 m/sRAP (EST) 3 vmBkQOFN19.3 mmHg TR Peak GR18.3 mmHg Left Ventricle The left ventricle is normal size. No regional wall motion abnormalities noted. Mild concentric left ventricular hypertrophy. Sigmoid shaped septum Left ventricular systolic function is low-normal, kelli mated LVEF 50 to 55%. Stage I diastolic dysfunction. Right Ventricle The right ventricle is normal size. The right ventricular systolic function is normal. Atria The left atrium is mildly dilated, 34 mL/m�. The right atrium size is normal. Aortic Valve Aortic valve is trileaflet. The leaflets are mildly thickened and calcified. Trace aortic regurgitati on. There is no aortic valvular stenosis. Mitral Valve Mild mitral annular calcification is noted. The leaflets are mildly thickened and calcified. Trace mi tral regurgitation. There is no mitral valve stenosis. Tricuspid Valve The tricuspid valve is normal in structure. Trace tricuspid regurgitation. RVSP is 18 mmHg. Pulmonic Valve Pulmonic valve is not well visualized. Great Vessels The aortic root is normal in size. The IVC is normal in size and collapses >50% with inspiration. Pericardium The pericardium appears normal. Other Information Quality : Adequate Conclusion The left atrium is mildly dilated, 34 mL/m�. Mild concentric left ventricular hypertrophy. Sigmoid shaped septum No regional wall motion abnormalities noted. Left ventricular systolic function is low-normal, estimated LVEF 50 to 55%. Stage I diastolic dysfunction. Trace aortic regurgitation. Trace mitral regurgitation. Trace tricuspid regurgitation. PASP is 21 mmHg. The pericardium appears normal. There was significant ectopy seen throughout the study.
== END 2025-01-30 16:40 | disposition home or self-care (01) | DRG 872 ==
LOC: EDH 00:23 → EDHIP 02:22 → 3DH 23:23
PROVIDERS: ADMIT Internal Medicine; ATTEND Internal Medicine
DX: A41.9 Sepsis, unspecified organism (principal); N30.00 Acute cystitis without hematuria; E66.9 Obesity, unspecified; I12.9 Hypertensive chronic kidney disease with stage 1 through stage 4 chronic kidney disease, or unspecified chronic kidney disease; J98.4 Other disorders of lung; J20.9 Acute bronchitis, unspecified; N18.9 Chronic kidney disease, unspecified; R73.9 Hyperglycemia, unspecified; Z77.22 Contact with and (suspected) exposure to environmental tobacco smoke (acute) (chronic); Z88.5 Allergy status to narcotic agent; Z68.30 Body mass index [BMI] 30.0-30.9, adult; Z85.028 Personal history of other malignant neoplasm of stomach; Z87.01 Personal history of pneumonia (recurrent); Z90.49 Acquired absence of other specified parts of digestive tract
CPT/HCPCS: 36415; 36600; 71045; 71250; 78582; 80048; 81001; 82435; 82550; 82803; 82947; 82948; 83605; 83735; 83880; 84100; 84132; 84145; 84295; 84484; 85018; 85025; 85027; 85378; 86140; 87040; 87071; 87086; 87205; 87635; 87804; 87880; 92610; 93005; 93306; 93356; 93970; 94010; 94640; 94664; 96374; 99285; A9540; A9558; G0378; J1650; J2250; J2543; J3490